=== PATIENT | male | born 1995 | race African-American/Black ===

== ENCOUNTER 2021-09-07 11:27 | Emergency (ER) | payer OTHER ==
[~2021-09-07] VITALS: Ht 162.6 cm; Wt 77.1 kg
[2021-09-07 11:43] VITALS: BP 156/79; TEMP 97.8
== END 2021-09-07 13:11 | disposition home or self-care (01) ==
LOC: ED 11:27
DX: J06.9 Acute upper respiratory infection, unspecified (principal); U07.1 COVID-19
CPT/HCPCS: 87502; 87651; 99283